=== PATIENT | female | born 1970 | race Caucasian/White ===

== ENCOUNTER 2018-07-05 17:14 | Emergency (ER) | payer OTHER | END 2018-07-05 17:44 | disposition home or self-care (01) | LOC: BURERS 17:14 | DX: O03.9 Complete or unspecified spontaneous abortion without complication (principal); J45.909 Unspecified asthma, uncomplicated; Z79.51 Long term (current) use of inhaled steroids | CPT/HCPCS: 99283 ==

== ENCOUNTER 2018-09-25 17:58 | Emergency (ER) | payer OTHER ==
[2018-09-25] MEDS ORDERED: Morphine 4 MG/ML VIAL ONE (18:16)
[2018-09-25] MEDS ORDERED: Cyclobenzaprine 10 MG TAB ONE (18:17)
== END 2018-09-25 19:08 | disposition home or self-care (01) ==
LOC: BURERS 17:58
DX: M54.41 Lumbago with sciatica, right side (principal); J45.909 Unspecified asthma, uncomplicated; F17.210 Nicotine dependence, cigarettes, uncomplicated; Z79.51 Long term (current) use of inhaled steroids
CPT/HCPCS: 96372; J2270

== ENCOUNTER 2019-08-19 18:39 | Emergency (ER) | payer OTHER ==
--- NOTE | 2019-08-19 20:30 | RAD ---
CHEST TWO VIEWS: 08/19/19 The heart is normal in size. No lobar infiltrate or effusion was seen. There may be some very minor accentuation of the lung markings which could either be due to minimal infection, bronchitis, or mere ly this patient's norm. The trachea is midline and the mediastinum appears normal. IMPRESSION: No focal findings. At most, mild accentuation of lung markings. POS: HOME
== END 2019-08-19 19:30 | disposition home or self-care (01) ==
LOC: BURERS 18:39
DX: J06.9 Acute upper respiratory infection, unspecified (principal); J45.909 Unspecified asthma, uncomplicated; F17.210 Nicotine dependence, cigarettes, uncomplicated; Z79.51 Long term (current) use of inhaled steroids
CPT/HCPCS: 71046

== ENCOUNTER 2019-08-23 09:03 | Emergency (ER) | payer OTHER ==
--- NOTE | 2019-08-23 19:18 | RAD ---
CHEST TWO VIEWS: 08/23/19 Comparison with a 08/19/19 study shows no adverse change. The heart is normal in size. As before, ther e is some minor accentuation of lung markings, but it really has not changed in the interval. There a re no effusions. IMPRESSION: No change since the prior study. POS: HOME
== END 2019-08-23 10:10 | disposition home or self-care (01) ==
LOC: BURERS 09:03
DX: J44.1 Chronic obstructive pulmonary disease with (acute) exacerbation (principal); F17.210 Nicotine dependence, cigarettes, uncomplicated; Z79.51 Long term (current) use of inhaled steroids
CPT/HCPCS: 71046; J7620

== ENCOUNTER 2020-11-16 18:46 | Emergency (ER) | payer OTHER | END 2020-11-16 19:20 | disposition home or self-care (01) | LOC: BURERS 18:46 | DX: R23.8 Other skin changes (principal); J45.909 Unspecified asthma, uncomplicated; F17.210 Nicotine dependence, cigarettes, uncomplicated | CPT/HCPCS: 99283 ==

== ENCOUNTER 2021-06-29 10:20 | Emergency (ER) | payer OTHER ==
[2021-06-30 16:01] LABS: SARS-CoV-2 PCR by NAA DETECTED (NotDetected)
== END 2021-06-29 12:10 | disposition home or self-care (01) ==
LOC: BURERS 10:20
DX: U07.1 COVID-19 (principal); J45.909 Unspecified asthma, uncomplicated
CPT/HCPCS: 99283; U0003; U0005

== ENCOUNTER 2022-02-17 11:09 | Emergency (ER) | payer OTHER ==
[2022-02-17 11:55] LABS: #Basophils 0.1 thou/uL (0.0-0.2); #Eosinphils 0.4 thou/uL (0.0-0.7); #Lymphocytes 3.5 thou/uL (1.20-3.40); #Monocytes 0.8 thou/uL (0.11-0.59); #Neutrophils 9.2 thou/uL (1.40-6.50); %Basophils 0.9 % (0.0-1.0); %Lymphocytes 24.7 % (21.0-51.0); %Monocytes 5.9 % (0.0-10.0); %Neutrophils 65.5 % (42.0-75.0); Hemoglobin 13.1 g/dL (12.0-16.0); Mean Corpuscular HGB CONC 31.6 g/dL (32.0-36.0); Mean Corpuscular Hemoglobin 27.2 pg (27.0-31.0); Mean Corpuscular Volume 86.1 fL (78.0-98.0); Platelet Count 345 thou/uL (130-400); RBC Distribution Width 14.4 % (11.5-14.5); Red Blood Cell (RBC) Count 4.81 mill/uL (4.20-5.40)
[2022-02-17] MEDS ORDERED: Metoclopramide HCl 10 MG/2 ML VIAL ONE (12:03)
[2022-02-17] MEDS ORDERED: diphenhydrAMINE 50 MG/ML VIAL ONE (12:03)
[2022-02-17 12:05] LABS: Anion Gap 13 mmol/L (10-20); BUN (Urea Nitrogen) 14 mg/dL (9.8-20.1); Calc. Creatinine Clearance 0 mL/min (70-130); Carbon Dioxide 23 mmol/L (22-29); Chloride 107 mmol/L (98-107); Estimated GFR 101; Glucose 101 mg/dL (70-105); Potassium 3.8 mmol/L (3.5-5.1); Sodium 139 mmol/L (136-145)
[2022-02-17 12:54] LABS: Bilirubin Negative (Negative); Blood, Urine Negative (Negative); Clarity Clear (Clear); Glucose, Urine (Dipstick) Negative (Negative); Ketone, Urine Trace mg/dL (Negative); Leukocyte Negative (Negative); Nitrite Negative (Negative); Protein, Urine (Dipstick) Negative (Neg-Trace); Urobilinogen 0.2 mg/dL (Less than 2)
[2022-02-17 12:57] LABS: Specific Gravity, Urine 1.005 (1.002-1.036)
== END 2022-02-17 13:33 | disposition home or self-care (01) ==
LOC: BURERS 11:09
DX: A08.4 Viral intestinal infection, unspecified (principal); R51.9 Headache, unspecified; F17.210 Nicotine dependence, cigarettes, uncomplicated
CPT/HCPCS: 70450; 80048; 81003; 85025; 96361; 96374; 96375; J1200; J2765

== ENCOUNTER 2022-03-06 18:02 | Emergency (ER) | payer OTHER ==
[2022-03-06] MEDS ORDERED: Boostrix 0.5 ML (Tdap) VIAL (>/=7 yrs of age) ONE (18:11)
[2022-03-06] MEDS ORDERED: Lidocaine 1% PF 5 ML VIAL ONE (18:11)
== END 2022-03-06 18:43 | disposition home or self-care (01) ==
LOC: BURERS 18:02
DX: S61.411A Laceration without foreign body of right hand, initial encounter (principal); Z23 Encounter for immunization; F17.210 Nicotine dependence, cigarettes, uncomplicated; W25.XXXA Contact with sharp glass, initial encounter
CPT/HCPCS: 12001; 90471; 90715

== ENCOUNTER 2022-03-16 09:05 | Emergency (ER) | payer OTHER | END 2022-03-16 09:28 | disposition home or self-care (01) | LOC: BURERS 09:05 | DX: S61.411D Laceration without foreign body of right hand, subsequent encounter (principal); F17.210 Nicotine dependence, cigarettes, uncomplicated; W25.XXXD Contact with sharp glass, subsequent encounter | CPT/HCPCS: 99282 ==